=== PATIENT | male | born 1970 | race Two or more races ===

== ENCOUNTER 2018-08-29 11:12 | Emergency (ER) | payer MEDICAID ==
[~2018-08-29] VITALS: Ht 177.8 cm; Wt 100.0 kg
[~2018-08-29 11:12] MED LIST: AMIT10TA6 PO; COU5T PO; FURO40TA4 PO; LACT1CAP26 PO; LISI10TA4 PO; METO-467 PO; POTA10TA19 PO; SYN0.088T PO
[2018-08-29 11:59] LABS: BASOPHILS % (AUTO) 0.4 % (0-1); EOSINOPHILS # (AUTO) 0.1 X10'3 (0-0.9); HEMATOCRIT 37.1 % (42.0-52.0); HEMOGLOBIN 11.9 g/dl (14.0-17.9); LYMPHOCYTES % (AUTO) 19.5 % (21-51); MEAN CORPUSCULAR HEMOGLOBIN 27.1 PG (27.0-31.0); MEAN CORPUSCULAR HGB CONC 32.2 % (33.0-36.5); MEAN PLATELET VOLUME 8.5 FL (7.4-10.4); MONOCYTES # (AUTO) 0.7 X10'3 (0-0.9); MONOCYTES % (AUTO) 12.5 % (2-12); NEUTROPHILS # (AUTO) 3.4 X10'3 (1.8-7.7); NEUTROPHILS % (AUTO) 66.6 % (42-75); PLATELET COUNT 247 X10'3 (140-440); RED BLOOD COUNT 4.42 X10'6 (4.70-6.10); WHITE BLOOD COUNT 5.2 X10'3 (4.5-11.0)
[2018-08-29 12:20] LABS: INR 1.8 INR; PARTIAL THROMBOPLASTIN TIME 43 SECONDS (22-32); PROTHROMBIN TIME 17.7 SECONDS (9.0-12.0)
[2018-08-29 12:28] LABS: ALANINE AMINOTRANSFERASE 61 U/L (12-78); ALBUMIN 3.6 G/DL (3.4-5.0); ALBUMIN/GLOBULIN RATIO 0.6 (1.1-1.5); ALKALINE PHOSPHATASE 739 IU/L (46-116); ANION GAP 12 (8-16); ASPARTATE AMINO TRANSFERASE 51 U/L (10-37); BILIRUBIN,TOTAL 0.8 MG/DL (0.1-1.0); BLOOD UREA NITROGEN 39 MG/DL (7-18); BUN/CREATININE RATIO 21.5 (5.4-32.0); CHLORIDE 99 MMOL/L (99-107); CREATININE 1.81 MG/DL (0.60-1.10); GLUCOSE 96 MG/DL (70-104); POTASSIUM 4.5 MMOL/L (3.5-5.1); SODIUM 134 MMOL/L (135-145); TOTAL CARBON DIOXIDE 23.5 MMOL/L (24-32); TOTAL PROTEIN 10.1 G/DL (6.4-8.2); eGFR 40 ML/MIN
[2018-08-29] MEDS ORDERED: levoFLOXACIN-Levaquin 500mg/D5 100 ML IV ONE (12:50)
[2018-08-29 13:00] LABS: D-DIMER 2.53 MG/L FEU (0-0.50)
[2018-08-29] MEDS ORDERED: LEVO500T89 PO (15:14)
[2018-08-29 15:29] VITALS: BP 129/70
== END 2018-08-29 16:20 | disposition home or self-care (01) ==
LOC: ER 11:13
DX: J18.9 Pneumonia, unspecified organism (principal); I50.9 Heart failure, unspecified; Z79.01 Long term (current) use of anticoagulants; Z79.899 Other long term (current) drug therapy
CPT/HCPCS: 36415; 71045; 80053; 83880; 84145; 84484; 85025; 85379; 85610; 85730; 87502; 87503; 93005; 93970; 96365; 99284; J1956

== ENCOUNTER 2018-10-27 16:44 | Inpatient (IN) | payer MEDICAID | END 2018-10-30 14:02 | disposition home or self-care (01) | LOC: ER 16:44 → SUR 3N 10-29 09:14 → ED HOLD 21:33 → SUR 3N 23:22 | DX: K56.600 Partial intestinal obstruction, unspecified as to cause (principal); N17.9 Acute kidney failure, unspecified; I50.9 Heart failure, unspecified; I48.91 Unspecified atrial fibrillation; E03.9 Hypothyroidism, unspecified ==

== ENCOUNTER 2018-12-17 13:17 | Emergency (ER) | payer MEDICAID ==
[~2018-12-17] VITALS: Ht 177.8 cm; Wt 101.0 kg
[~2018-12-17 13:17] MED LIST changes: +OMEP-50 PO
[2018-12-17 13:25] VITALS: BP 114/75
[2018-12-17] MEDS ORDERED: LIDOcaine 1% w/epiNEPHrine 1:200,000 30ml vial IM ONE (14:00)
[2018-12-17 14:53] LABS: INR 2.2 INR
== END 2018-12-17 15:33 | disposition home or self-care (01) ==
LOC: ER 13:18
DX: S61.012A Laceration without foreign body of left thumb without damage to nail, initial encounter (principal); I11.0 Hypertensive heart disease with heart failure; I50.9 Heart failure, unspecified; I48.91 Unspecified atrial fibrillation; Z90.49 Acquired absence of other specified parts of digestive tract; X58.XXXA Exposure to other specified factors, initial encounter; Y93.G3 Activity, cooking and baking; Y92.89 Other specified places as the place of occurrence of the external cause; Y99.8 Other external cause status
CPT/HCPCS: 12001; 36415; 85610; 99283; J3490

== ENCOUNTER 2019-02-12 07:25 | Emergency (ER) | payer MEDICAID ==
[~2019-02-12] VITALS: Ht 177.8 cm; Wt 91.8 kg
[~2019-02-12 07:25] MED LIST changes: +DOCU-28 PO; +FURO-150 PO; -FURO40TA4 PO; -LACT1CAP26 PO; -LISI10TA4 PO
[2019-02-12] MEDS ORDERED: ondansetron/PF 4mg/2ml inj IV ONE (08:10)
[2019-02-12] MEDS ORDERED: normal saline 1000ML IV soln IVB ONE (08:10)
[2019-02-12 08:37] LABS: BASOPHILS % (AUTO) 0.3 % (0-1); EOSINOPHILS % (AUTO) 0.9 % (0-6); HEMATOCRIT 35.5 % (42.0-52.0); HEMOGLOBIN 11.5 g/dl (14.0-17.9); LYMPHOCYTES % (AUTO) 19.7 % (21-51); MEAN CORPUSCULAR HEMOGLOBIN 25.4 PG (27.0-31.0); MEAN CORPUSCULAR HGB CONC 32.4 g/dL (33.0-36.5); MEAN CORPUSCULAR VOLUME 78.4 FL (78-98); MEAN PLATELET VOLUME 8.4 FL (7.4-10.4); MONOCYTES # (AUTO) 0.6 X10'3 (0-0.9); MONOCYTES % (AUTO) 11.9 % (2-12); NEUTROPHILS # (AUTO) 3.5 X10'3 (1.8-7.7); NEUTROPHILS % (AUTO) 67.2 % (42-75); PLATELET COUNT 261 X10'3 (140-440); RED BLOOD COUNT 4.52 X10'6 (4.70-6.10); RED CELL DISTRIBUTION WIDTH 17.5 % (11.5-14.5); WHITE BLOOD COUNT 5.3 X10'3 (4.5-11.0)
[2019-02-12] MEDS ORDERED: lactulose 20gm/30ml cup PO ONE (08:45)
[2019-02-12] MEDS ORDERED: morphine 4 MG/ML inj SYRINge IV PRN (08:55)
[2019-02-12 08:56] LABS: CLARITY,URINE CLEAR (Clear); COLOR,URINE STRAW (Yellow); GLUCOSE, URINE NEGATIVE (Neg); KETONES,URINE NEGATIVE (Neg); LEUKOCYTE ESTERASE ,URINE NEGATIVE (Neg); NITRITES, URINE NEGATIVE (Neg); OCCULT BLOOD,URINE NEGATIVE (Neg); PROTEIN,URINE NEGATIVE (Neg); UROBILINOGEN,URINE 0.2 E.U/dL (0.2-1.0)
[2019-02-12] MEDS ORDERED: polyethylene glycol 3350 17gm powd pack PO SCH ×2 (08:56→21:00)
[2019-02-12 09:05] LABS: UA COLLECTION TYPE CLN CATCH MIDSTREAM
[2019-02-12 09:08] LABS: ALANINE AMINOTRANSFERASE 28 U/L (12-78); ALBUMIN 3.2 G/DL (3.4-5.0); ALBUMIN/GLOBULIN RATIO 0.5 (1.1-1.5); ALKALINE PHOSPHATASE 464 IU/L (46-116); ANION GAP 8 (8-16); ASPARTATE AMINO TRANSFERASE 30 U/L (10-37); BILIRUBIN,TOTAL 1.2 MG/DL (0.1-1.0); BLOOD UREA NITROGEN 50 MG/DL (7-18); BUN/CREATININE RATIO 28.4 (5.4-32.0); CALCIUM 9.5 MG/DL (8.5-10.1); CHLORIDE 104 MMOL/L (99-107); CREATININE 1.76 MG/DL (0.60-1.10); GLUCOSE 102 MG/DL (70-104); LIPASE 277 U/L (73-393); POTASSIUM 4.2 MMOL/L (3.5-5.1); SODIUM 137 MMOL/L (135-145); TOTAL CARBON DIOXIDE 25.2 MMOL/L (24-32); TOTAL PROTEIN 9.1 G/DL (6.4-8.2); eGFR 41 ML/MIN
[2019-02-12] MEDS ORDERED: furosemide 10 MG/1 ML 10ml inj IV ONE (10:10)
[2019-02-12 10:26] VITALS: BP 109/71
[2019-02-15] MEDS ORDERED: SUCR1ORA PO (17:54)
[2019-02-15] MEDS ORDERED: OMEP40CA37 PO (17:54)
== END 2019-02-12 10:46 | disposition home or self-care (01) ==
LOC: ER 07:26
DX: K70.31 Alcoholic cirrhosis of liver with ascites (principal); K59.00 Constipation, unspecified; R10.33 Periumbilical pain; R11.2 Nausea with vomiting, unspecified; N18.9 Chronic kidney disease, unspecified; I50.9 Heart failure, unspecified; I48.91 Unspecified atrial fibrillation; Z90.49 Acquired absence of other specified parts of digestive tract; Z79.01 Long term (current) use of anticoagulants; Z79.899 Other long term (current) drug therapy
CPT/HCPCS: 36415; 74018; 74176; 80053; 81003; 83690; 85025; 85610; 96361; 96374; 96375; 99284; J1940; J2270; J2405; J7030

== ENCOUNTER 2020-03-25 17:26 | Emergency (ER) | payer MEDICAID ==
[~2020-03-25] VITALS: Ht 177.8 cm; Wt 97.3 kg
[~2020-03-25 17:26] MED LIST changes: -AMIT10TA6 PO; -COU5T PO; +COU7.5T PO; -DOCU-28 PO; -FURO-150 PO; +FURO40TA4 PO; +HYDR-3686 PO; +METO-384 PO; -METO-467 PO; -OMEP-50 PO; +PANT-47 PO; -POTA10TA19 PO
[2020-03-25 18:32] LABS: BASOPHILS % (AUTO) 0.4 % (0-1); EOSINOPHILS # (AUTO) 0.1 X10'3 (0-0.9); EOSINOPHILS % (AUTO) 1.9 % (0-6); HEMATOCRIT 25.9 % (42.0-52.0); HEMOGLOBIN 8.2 g/dl (14.0-17.9); LYMPHOCYTES # (AUTO) 0.7 X10'3 (1.1-4.8); LYMPHOCYTES % (AUTO) 15.9 % (21-51); MEAN CORPUSCULAR HEMOGLOBIN 23.1 PG (27.0-31.0); MEAN CORPUSCULAR HGB CONC 31.6 g/dL (33.0-36.5); MEAN CORPUSCULAR VOLUME 73.1 FL (78-98); MEAN PLATELET VOLUME 8.1 FL (7.4-10.4); MONOCYTES # (AUTO) 0.7 X10'3 (0-0.9); MONOCYTES % (AUTO) 14.5 % (2-12); NEUTROPHILS # (AUTO) 3.2 X10'3 (1.8-7.7); NEUTROPHILS % (AUTO) 67.3 % (42-75); PLATELET COUNT 218 X10'3 (140-440); RED BLOOD COUNT 3.54 X10'6 (4.70-6.10); RED CELL DISTRIBUTION WIDTH 18.7 % (11.5-14.5); WHITE BLOOD COUNT 4.7 X10'3 (4.5-11.0)
[2020-03-25 18:52] LABS: ALANINE AMINOTRANSFERASE 21 U/L (12-78); ALBUMIN 3.2 G/DL (3.4-5.0); ALBUMIN/GLOBULIN RATIO 0.6 (1.1-1.5); ALKALINE PHOSPHATASE 357 IU/L (46-116); AMYLASE 77 U/L (25-115); ANION GAP 8 (8-16); ASPARTATE AMINO TRANSFERASE 40 U/L (10-37); BILIRUBIN,TOTAL 0.6 MG/DL (0.1-1.0); BLOOD UREA NITROGEN 27 MG/DL (7-18); BUN/CREATININE RATIO 14.7 (5.4-32.0); CALCIUM 8.4 MG/DL (8.5-10.1); CHLORIDE 102 MMOL/L (99-107); CREATININE 1.84 MG/DL (0.60-1.10); GLUCOSE 106 MG/DL (70-104); LIPASE 250 U/L (73-393); POTASSIUM 4.1 MMOL/L (3.5-5.1); SODIUM 136 MMOL/L (135-145); TOTAL CARBON DIOXIDE 25.9 MMOL/L (24-32); TOTAL PROTEIN 8.9 G/DL (6.4-8.2); eGFR 39 ML/MIN
--- NOTE | 2020-03-25 19:27 | NUR ---
hemoccult supplies in room
[2020-03-25 19:55] LABS: OCCULT BLOOD STOOL POSITIVE (Neg)
[2020-03-25 21:24] VITALS: BP 113/75
[2020-03-25 21:42] LABS: ANISOCYTOSIS 2+; HYPOCHROMASIA 1+; MICROCYTOSIS 1+; PLATELET ESTIMATE NORMAL
== END 2020-03-25 21:27 | disposition home or self-care (01) ==
LOC: ER 17:27
DX: D64.9 Anemia, unspecified (principal); K92.2 Gastrointestinal hemorrhage, unspecified; I48.91 Unspecified atrial fibrillation; I50.9 Heart failure, unspecified; Z90.49 Acquired absence of other specified parts of digestive tract; Z72.89 Other problems related to lifestyle
CPT/HCPCS: 36415; 80053; 82150; 82272; 83690; 85025; 85610; 86885; 86900; 86901; 99283

== ENCOUNTER 2020-03-29 17:37 | Emergency (ER) | payer MEDICAID ==
[~2020-03-29] VITALS: Ht 177.8 cm; Wt 94.0 kg
[2020-03-29 19:11] LABS: BASOPHILS % (AUTO) 0.5 % (0-1); EOSINOPHILS # (AUTO) 0.1 X10'3 (0-0.9); EOSINOPHILS % (AUTO) 2.9 % (0-6); HEMOGLOBIN 8.6 g/dl (14.0-17.9); LYMPHOCYTES # (AUTO) 0.6 X10'3 (1.1-4.8); LYMPHOCYTES % (AUTO) 13.8 % (21-51); MEAN CORPUSCULAR HEMOGLOBIN 23.5 PG (27.0-31.0); MEAN CORPUSCULAR HGB CONC 31.8 g/dL (33.0-36.5); MEAN CORPUSCULAR VOLUME 73.9 FL (78-98); MEAN PLATELET VOLUME 7.7 FL (7.4-10.4); MONOCYTES # (AUTO) 0.6 X10'3 (0-0.9); MONOCYTES % (AUTO) 14.8 % (2-12); NEUTROPHILS # (AUTO) 2.9 X10'3 (1.8-7.7); PLATELET COUNT 179 X10'3 (140-440); RED BLOOD COUNT 3.65 X10'6 (4.70-6.10); WHITE BLOOD COUNT 4.2 X10'3 (4.5-11.0)
[2020-03-29 19:23] LABS: ALANINE AMINOTRANSFERASE 20 U/L (12-78); ALBUMIN 3.2 G/DL (3.4-5.0); ALBUMIN/GLOBULIN RATIO 0.6 (1.1-1.5); ALKALINE PHOSPHATASE 347 IU/L (46-116); ANION GAP 11 (8-16); ASPARTATE AMINO TRANSFERASE 26 U/L (10-37); BILIRUBIN,TOTAL 0.6 MG/DL (0.1-1.0); BLOOD UREA NITROGEN 29 MG/DL (7-18); BUN/CREATININE RATIO 17.8 (5.4-32.0); CALCIUM 8.7 MG/DL (8.5-10.1); CHLORIDE 101 MMOL/L (99-107); CREATININE 1.63 MG/DL (0.60-1.10); POTASSIUM 4.3 MMOL/L (3.5-5.1); SODIUM 137 MMOL/L (135-145); TOTAL CARBON DIOXIDE 25.3 MMOL/L (24-32); TOTAL PROTEIN 8.8 G/DL (6.4-8.2); eGFR 45 ML/MIN
[2020-03-29 19:31] LABS: GLUCOSE 90 MG/DL (70-104)
[2020-03-29 20:28] LABS: HYPOCHROMASIA 1+; PLATELET ESTIMATE NORMAL; POLYCHROMASIA 1+
[2020-03-29 20:29] LABS: ANISOCYTOSIS 2+; MICROCYTOSIS 1+; TEAR DROP CELLS 1+
[2020-03-29 21:23] VITALS: BP 110/70
== END 2020-03-29 22:23 | disposition home or self-care (01) ==
LOC: ER 17:38
DX: K92.2 Gastrointestinal hemorrhage, unspecified (principal); M79.89 Other specified soft tissue disorders; I48.91 Unspecified atrial fibrillation; I50.9 Heart failure, unspecified; N18.9 Chronic kidney disease, unspecified; Z86.2 Personal history of diseases of the blood and blood-forming organs and certain disorders involving the immune mechanism; Z90.49 Acquired absence of other specified parts of digestive tract; Z72.89 Other problems related to lifestyle; Z88.8 Allergy status to other drugs, medicaments and biological substances; Z79.899 Other long term (current) drug therapy
CPT/HCPCS: 36415; 80053; 83880; 84484; 85025; 85610; 99283

== ENCOUNTER 2023-02-22 12:14 | Emergency (ER) | payer MEDICAID ==
[~2023-02-22] VITALS: Ht 177.8 cm; Wt 84.0 kg
[~2023-02-22 12:14] MED LIST changes: -COU7.5T PO; +FERR325T28 PO; -HYDR-3686 PO; +LACT10SO78 PO; +LEVO100T9 PO; +MELA3TAB39 PO; +ONDA4TAB6 PO; -PANT-47 PO; +PANT40TA54 PO; +POTA-205 PO; +SPIR25TA5 PO; -SYN0.088T PO
[2023-02-22 13:11] LABS: BASOPHILS % (AUTO) 0.2 % (0-1); EOSINOPHILS % (AUTO) 0.8 % (0-6); HEMOGLOBIN 14.7 g/dl (14.0-17.9); LYMPHOCYTES # (AUTO) 0.9 X10'3 (1.1-4.8); LYMPHOCYTES % (AUTO) 16.6 % (21-51); MEAN CORPUSCULAR HEMOGLOBIN 30.6 PG (27.0-31.0); MEAN CORPUSCULAR HGB CONC 34.2 g/dL (33.0-36.5); MEAN CORPUSCULAR VOLUME 89.6 FL (78-98); MEAN PLATELET VOLUME 8.6 FL (7.4-10.4); MONOCYTES # (AUTO) 0.5 X10'3 (0-0.9); MONOCYTES % (AUTO) 9.2 % (2-12); NEUTROPHILS # (AUTO) 3.9 X10'3 (1.8-7.7); NEUTROPHILS % (AUTO) 73.2 % (42-75); PLATELET COUNT 156 X10'3 (140-440); RED CELL DISTRIBUTION WIDTH 13.8 % (11.5-14.5); WHITE BLOOD COUNT 5.3 X10'3 (4.5-11.0)
[2023-02-22 13:12] LABS: CLARITY,URINE CLEAR (Clear); COLOR,URINE YELLOW (Yellow); GLUCOSE, URINE NEGATIVE (Neg); KETONES,URINE NEGATIVE (Neg); LEUKOCYTE ESTERASE ,URINE NEGATIVE (Neg); NITRITES, URINE NEGATIVE (Neg); OCCULT BLOOD,URINE NEGATIVE (Neg); PH,URINE 5.5 (4.8-8.0); PROTEIN,URINE NEGATIVE (Neg)
[2023-02-22 13:18] LABS: UA COLLECTION TYPE CLN CATCH MIDSTREAM
[2023-02-22 13:26] LABS: ALANINE AMINOTRANSFERASE 39 U/L (12-78); ALBUMIN 3.6 G/DL (3.4-5.0); ALBUMIN/GLOBULIN RATIO 0.8 (1.1-1.5); ALKALINE PHOSPHATASE 128 IU/L (46-116); ANION GAP 9 (8-16); ASPARTATE AMINO TRANSFERASE 37 U/L (10-37); BILIRUBIN,TOTAL 0.6 MG/DL (0.1-1.0); BLOOD UREA NITROGEN 27 MG/DL (7-18); BUN/CREATININE RATIO 18.9 (10.0-20.0); CALCIUM 9.1 MG/DL (8.5-10.1); CHLORIDE 102 MMOL/L (99-107); CREATININE 1.43 MG/DL (0.60-1.10); GLUCOSE 100 MG/DL (70-104); LIPASE 189 U/L (73-393); SODIUM 137 MMOL/L (135-145); TOTAL CARBON DIOXIDE 26.1 MMOL/L (24-32); TOTAL PROTEIN 8.3 G/DL (6.4-8.2); eGFR 52 ML/MIN
[2023-02-22] MEDS ORDERED: ondansetron 4mg rapidly disintigrating tab PO STA (14:14)
[2023-02-22] MEDS ORDERED: pantoprazole 40mg Tablet.DR PO ONE (14:15)
[2023-02-22] MEDS ORDERED: LIDOcaine Viscous 15ml cup MM ONE (14:15)
[2023-02-22] MEDS ORDERED: mag hydrox/Alum hydrox/simeth 30ml oral suspension PO ONE (14:15)
[2023-02-22] MEDS ORDERED: ONDA4TAB12 PO (14:21)
[2023-02-22 14:52] VITALS: BP 118/79
== END 2023-02-22 14:54 | disposition home or self-care (01) ==
LOC: ER 12:15
DX: K29.00 Acute gastritis without bleeding (principal); I50.9 Heart failure, unspecified; N18.9 Chronic kidney disease, unspecified; Z88.8 Allergy status to other drugs, medicaments and biological substances; Z90.49 Acquired absence of other specified parts of digestive tract
CPT/HCPCS: 36415; 80053; 81003; 83690; 85025; 99284

== ENCOUNTER 2023-03-26 04:22 | Emergency (ER) | payer MEDICAID ==
[~2023-03-26 04:22] MED LIST changes: +ONDA4TAB12 PO
== END 2023-03-26 04:31 | disposition left against medical advice (07) ==
LOC: ER 04:22
DX: M79.676 Pain in unspecified toe(s) (principal); Z53.21 Procedure and treatment not carried out due to patient leaving prior to being seen by health care provider

== ENCOUNTER 2023-05-30 19:22 | Emergency (ER) | payer MEDICAID ==
[~2023-05-30] VITALS: Ht 172.7 cm; Wt 86.4 kg
[2023-05-30 20:01] LABS: BASOPHILS % (AUTO) 0.2 % (0-1); EOSINOPHILS # (AUTO) 0.1 X10'3 (0-0.9); EOSINOPHILS % (AUTO) 1.3 % (0-6); LYMPHOCYTES # (AUTO) 1.3 X10'3 (1.1-4.8); LYMPHOCYTES % (AUTO) 26.7 % (21-51); MEAN CORPUSCULAR HEMOGLOBIN 30.1 PG (27.0-31.0); MEAN CORPUSCULAR HGB CONC 33.4 g/dL (33.0-36.5); MEAN CORPUSCULAR VOLUME 90.2 FL (78-98); MEAN PLATELET VOLUME 8.9 FL (7.4-10.4); MONOCYTES # (AUTO) 0.4 X10'3 (0-0.9); NEUTROPHILS # (AUTO) 3.1 X10'3 (1.8-7.7); NEUTROPHILS % (AUTO) 62.8 % (42-75); PLATELET COUNT 159 X10'3 (140-440); RED BLOOD COUNT 4.66 X10'6 (4.70-6.10); RED CELL DISTRIBUTION WIDTH 14.1 % (11.5-14.5); WHITE BLOOD COUNT 4.9 X10'3 (4.5-11.0)
[2023-05-30 20:12] LABS: INR 1.9 INR; PROTHROMBIN TIME 20.1 SECONDS (9.0-12.0)
[2023-05-30 20:16] LABS: ALANINE AMINOTRANSFERASE 42 U/L (12-78); ALBUMIN 3.6 G/DL (3.4-5.0); ALBUMIN/GLOBULIN RATIO 0.8 (1.1-1.5); ALKALINE PHOSPHATASE 132 IU/L (46-116); ANION GAP 11 (8-16); ASPARTATE AMINO TRANSFERASE 37 U/L (10-37); BILIRUBIN,TOTAL 0.5 MG/DL (0.1-1.0); BLOOD UREA NITROGEN 29 MG/DL (7-18); CALCIUM 8.9 MG/DL (8.5-10.1); CHLORIDE 102 MMOL/L (99-107); CREATININE 1.53 MG/DL (0.60-1.10); GLUCOSE 151 MG/DL (70-104); POTASSIUM 3.6 MMOL/L (3.5-5.1); SODIUM 135 MMOL/L (135-145); TOTAL CARBON DIOXIDE 22.3 MMOL/L (24-32); TOTAL PROTEIN 8.4 G/DL (6.4-8.2); eCRCL 53 ML/MIN; eGFR 47 ML/MIN
[2023-05-30 20:18] LABS: LIPASE 73 U/L (16-77)
[2023-05-30] MEDS ORDERED: TETanus/Pertussis (Acell)/Diphther VAC/PF (Tdap-Adult) 0.5ml syringe IMVAC ONE (20:50)
[2023-05-30 21:14] VITALS: BP 136/91; PULSE 82; RESP 16; TEMP 98.3; O2SAT 98
== END 2023-05-30 21:19 | disposition home or self-care (01) ==
LOC: ER 19:23
DX: I83.892 Varicose veins of left lower extremity with other complications (principal); N28.9 Disorder of kidney and ureter, unspecified; I13.0 Hypertensive heart and chronic kidney disease with heart failure and stage 1 through stage 4 chronic kidney disease, or unspecified chronic kidney disease; N18.9 Chronic kidney disease, unspecified; I50.9 Heart failure, unspecified; Z86.2 Personal history of diseases of the blood and blood-forming organs and certain disorders involving the immune mechanism
CPT/HCPCS: 12001; 36415; 80053; 83690; 85025; 85610; 90471; 90715; 99291; A6446; A6449

== ENCOUNTER 2023-12-21 07:59 | Emergency (ER) | payer MEDICAID ==
[~2023-12-21] VITALS: Ht 177.8 cm; Wt 90.2 kg
[2023-12-21 08:11] VITALS: TEMP 97
[2023-12-21 08:24] VITALS: BP 143/84; PULSE 62; RESP 17; O2SAT 100
[2023-12-21] MEDS ORDERED: PERM60CR19 TOP (09:18)
== END 2023-12-21 09:53 | disposition home or self-care (01) ==
LOC: ER 08:00
DX: B86 Scabies (principal); I50.9 Heart failure, unspecified; N18.9 Chronic kidney disease, unspecified; E03.9 Hypothyroidism, unspecified; I48.91 Unspecified atrial fibrillation; Z90.49 Acquired absence of other specified parts of digestive tract; F10.90 Alcohol use, unspecified, uncomplicated
CPT/HCPCS: 99282; 99283